=== PATIENT | female | born 1970 | race Two or more races ===

== ENCOUNTER → 2020-04-11 | Outpatient (CLI) | payer OTHER | END | disposition home or self-care (01) | LOC: STAR 15:27 | PROVIDERS: ATTEND Orthopaedic Surgery | DX: Z01.812 Encounter for preprocedural laboratory examination (principal); Z20.828 Contact with and (suspected) exposure to other viral communicable diseases | CPT/HCPCS: 36415; 87635 ==

== ENCOUNTER 2020-04-15 05:48 | Day surgery (SDC) | payer BC, OTHER ==
[~2020-04-15] VITALS: Ht 172.7 cm; Wt 95.0 kg
[2020-04-15] MEDS ORDERED: BUPIVACAINE/PF 0.5% ONE (05:57)
[2020-04-15] MEDS ORDERED: LIDOCAINE 1%, 20ML ONE (05:57)
[2020-04-15 06:02] VITALS: BP 150/90
[2020-04-15] MEDS ORDERED: CHLORHEXIDINE 15 ML UDC MM STA (06:04)
[2020-04-15] MEDS ORDERED: LACTATED RINGERS 1,000 ML IV SCH (06:30)
[2020-04-15] MEDS ORDERED: SUCCINYLCHOLINE 20 MG/ML, 10ML ONE (06:40)
[2020-04-15] MEDS ORDERED: FENTANYL PF 250 MCG/5ML ONE (06:40)
[2020-04-15] MEDS ORDERED: MIDAZOLAM 1 MG/ML, 2ML ONE (06:40)
[2020-04-15] MEDS ORDERED: METO50TA82 PO (06:42)
[2020-04-15] MEDS ORDERED: ESCI20TA PO (06:42)
[2020-04-15] MEDS ORDERED: HYDR-3653 PO (06:42)
[2020-04-15] MEDS ORDERED: SIMV20TA19 PO (06:42)
[2020-04-15] MEDS ORDERED: TRAZ-175 PO (06:42)
[2020-04-15] MEDS ORDERED: CLOP75TA PO (06:42)
[2020-04-15] MEDS ORDERED: LISI-170 PO (06:42)
[2020-04-15] MEDS ORDERED: hydrALAzine 20 MG/ML, 1ML IV PRN (07:00)
[2020-04-15] MEDS ORDERED: ACETAMINOPHEN 325 MG TABLET PO PRN (07:00)
[2020-04-15] MEDS ORDERED: OXYcodone 5 MG/5 ML ORAL.SOL UDC PO PRN (07:00)
[2020-04-15] MEDS ORDERED: LABETALOL 5MG/ML, 20ML IV PRN (07:00)
[2020-04-15] MEDS ORDERED: PROMETHAZINE 25 MG/ML, 1ML IVPush PRN (07:00)
[2020-04-15] MEDS ORDERED: FENTANYL PF 100 MCG/2ML IV PRN (07:00)
[2020-04-15] MEDS ORDERED: MEPERIDINE/PF 25MG/0.5ML IVPush PRN (07:00)
[2020-04-15] MEDS ORDERED: HYDROmorphone 1 MG/ML, 1ML INJ IVPush PRN (07:00)
[2020-04-15] MEDS ORDERED: ONDANSETRON 2MG/ML, 2ML IVPush PRN (07:00)
[2020-04-15] MEDS ORDERED: MIDAZOLAM 1 MG/ML, 2ML IV PRN (07:00)
[2020-04-15] MEDS ORDERED: ONDANSETRON 2MG/ML, 2ML ONE (07:02)
[2020-04-15] MEDS ORDERED: PROPOFOL 10 MG/ML, 20ML ONE (07:02)
[2020-04-15] MEDS ORDERED: CEFAZOLIN 1,000 MG ONE (16:20)
== END 2020-04-15 08:20 | disposition home or self-care (01) ==
LOC: OUT 05:48 → EDSTATUS 07:00 → OUT 08:20
PROVIDERS: ATTEND Orthopaedic Surgery
DX: D48.1 Neoplasm of uncertain behavior of connective and other soft tissue (principal); M65.332 Trigger finger, left middle finger; M65.342 Trigger finger, left ring finger; I10 Essential (primary) hypertension; Z79.02 Long term (current) use of antithrombotics/antiplatelets; Z79.899 Other long term (current) drug therapy; Z87.891 Personal history of nicotine dependence
CPT/HCPCS: 26111; 88305; J0330; J0690; J2250; J2405; J2704; J3010; J7120